=== PATIENT | female | born 1955 | race Caucasian/White ===

== ENCOUNTER 2018-08-18 18:05 | Emergency (ER) | payer BC ==
[2018-08-18] MEDS ORDERED: Bacitracin Zinc 1 Packet ONE (19:02)
[2018-08-18] MEDS ORDERED: Adacel (T-DAP) 0.5 ML VIAL ONE (19:02)
== END 2018-08-18 19:32 | disposition home or self-care (01) ==
LOC: ERS 18:05
DX: S01.111A Laceration without foreign body of right eyelid and periocular area, initial encounter (principal); F17.210 Nicotine dependence, cigarettes, uncomplicated; Z23 Encounter for immunization; W18.30XA Fall on same level, unspecified, initial encounter
CPT/HCPCS: 12011; 90471; 90715